=== PATIENT | female | born 1980 | race Caucasian/White ===

== ENCOUNTER 2017-12-20 10:50 | Outpatient (CLI) | payer OTHER | END 2017-12-20 10:55 | disposition home or self-care (01) | LOC: LAB 10:50 | DX: M79.1 Myalgia (principal) ==

== ENCOUNTER 2017-12-21 10:02 | Outpatient (CLI) | payer OTHER | END 2017-12-21 12:52 | disposition home or self-care (01) | LOC: TOM 10:02 | DX: R07.89 Other chest pain (principal); M79.1 Myalgia ==